=== PATIENT | female | born 1955 | race Caucasian/White ===

== ENCOUNTER 2022-12-08 06:14 | Inpatient (IN) | payer MEDICARE ==
[2022-12-08] MEDS ORDERED: CEFAZOLIN 2 GM VIAL ONE (08:19)
[2022-12-08] MEDS ORDERED: Sodium Chloride 0.9% 0 ML ONE (08:19)
[2022-12-08 08:44] LABS: SARS-CoV-2 NAA Rapid Test Not Detected (NotDetected)
[2022-12-08] MEDS ORDERED: Levofloxacin 500 mg/D5W 100 ml Premix Bag ONE (10:07)
[2022-12-08] MEDS ORDERED: Clindamycin/D5W 900 mg/50 ml Premix Bag ONE (10:07)
[2022-12-08] MEDS ORDERED: Dexamethasone 20 MG/5 ML VIAL ONE (10:21)
[2022-12-08] MEDS ORDERED: Lidocaine 1% PF 5 ML VIAL ONE (10:21)
[2022-12-08] MEDS ORDERED: PROPOFOL 200 MG/20 ML VIAL ONE (10:21)
[2022-12-08] MEDS ORDERED: Ondansetron PF 4 MG/2 ML Vial ONE (10:21)
[2022-12-08] MEDS ORDERED: HYDROcodone/Acetaminophen 10/325 mg Tablet PO PRN ×2 (10:36)
[2022-12-08] MEDS ORDERED: Promethazine 25 MG TAB PO PRN (10:36)
[2022-12-08] MEDS ORDERED: Cyclobenzaprine 10 MG TAB PO PRN (10:36)
[2022-12-08] MEDS ORDERED: traMADol HCl 50 MG TAB PO PRN ×2 (10:36)
[2022-12-08] MEDS ORDERED: diphenhydrAMINE 25 MG CAP PO PRN (10:36)
[2022-12-08] MEDS ORDERED: Morphine 2 MG/ML VIAL SLOW IVP PRN (10:36)
[2022-12-08] MEDS ORDERED: Mag-Al 1200 mg/1200 mg/30 ML UDCUP PO PRN (10:36)
[2022-12-08] MEDS ORDERED: Acetaminophen 325 MG TAB PO PRN (10:36)
[2022-12-08] MEDS ORDERED: Ondansetron PF 4 MG/2 ML Vial IVP PRN (10:36)
[2022-12-08] MEDS ORDERED: Milk Of Magnesia 30 ML UDCUP PO PRN (10:36)
[2022-12-08] MEDS ORDERED: Morphine 10 MG/ML VIAL ONE (10:49)
[2022-12-08] MEDS ORDERED: SUGAMMADEX SODIUM 200 MG/2 ML VIAL ONE (11:09)
[2022-12-08] MEDS ORDERED: Fentanyl 250 MCG/5 ML VIAL ONE (11:26)
[2022-12-08] MEDS ORDERED: Promethazine HCl 25 MG/ML VIAL IM PRN (11:33)
[2022-12-08] MEDS ORDERED: Ondansetron HCl/PF 4 MG/2 ML Vial IVP PRN (11:33)
[2022-12-08] MEDS ORDERED: Promethazine HCl 25 MG/ML VIAL IVPB PRN (11:33)
[2022-12-08 16:03] VITALS: BMI 42.5
[2022-12-08] MEDS: Sodium Chloride 0.9% 1,000 ML IV SCH ×2 (16:08→23:30)
[2022-12-08] MEDS: Carvedilol 25 MG TAB PO SCH (17:48)
[2022-12-08] MEDS: Clindamycin/D5W 900 MG in Premix Bag 1 BAG IVPB SCH (17:48)
[2022-12-08] MEDS ORDERED: oxyCODONE/Acetaminophen 5 mg/325 mg Tablet PO PRN (20:19)
[2022-12-08] MEDS ORDERED: rOPINIRole HCl 2 MG TAB PO SCH (21:00)
[2022-12-08] MEDS: oxyCODONE/Acetaminophen 5 mg/325 mg Tablet PO PRN (21:26)
[2022-12-09] MEDS: Clindamycin/D5W 900 MG in Premix Bag 1 BAG IVPB SCH (02:49)
[2022-12-09] MEDS: oxyCODONE/Acetaminophen 5 mg/325 mg Tablet PO PRN ×2 (03:32→13:29)
[2022-12-09 08:17] VITALS: BP 138/76; TEMP 98.8
[2022-12-09] MEDS ORDERED: Venlafaxine HCl XR 75 MG CAP PO SCH (09:00)
[2022-12-09] MEDS: Carvedilol 25 MG TAB PO SCH (09:11)
[2022-12-09] MEDS: Sodium Chloride 0.9% 1,000 ML IV SCH (13:32)
== END 2022-12-09 14:40 | disposition home or self-care (01) | DRG 472 ==
LOC: SURG A 07:26 → EDSTATUS 13:49 → T4-B 15:49
PROVIDERS: ADMIT Neurological Surgery; ATTEND Neurological Surgery
PROC: 0RG20A0 Fusion of 2 or more Cervical Vertebral Joints with Interbody Fusion Device, Anterior Approach, Anterior Column, Open Approach (ICD-10-PCS; principal; 2022-12-08)
PROC: 0RB30ZZ Excision of Cervical Vertebral Disc, Open Approach (ICD-10-PCS; 2022-12-08)
DX: M50.31 Other cervical disc degeneration, high cervical region (principal); M47.12 Other spondylosis with myelopathy, cervical region; Z68.41 Body mass index [BMI] 40.0-44.9, adult; Z20.822 Contact with and (suspected) exposure to COVID-19; M25.78 Osteophyte, vertebrae; E78.5 Hyperlipidemia, unspecified; G47.33 Obstructive sleep apnea (adult) (pediatric); E66.01 Morbid (severe) obesity due to excess calories; I10 Essential (primary) hypertension; Z88.0 Allergy status to penicillin; Z79.899 Other long term (current) drug therapy
CPT/HCPCS: 93005; 93010; C1713; J1100; J1956; J2270; J2405; J2704; J3010; J3490; U0002

== ENCOUNTER 2022-12-24 12:49 | Outpatient (CLI) | payer MEDICARE | END 2022-12-24 12:50 | disposition home or self-care (01) | LOC: TBSIIMAG 12:49 | PROVIDERS: ATTEND Neurological Surgery | DX: M47.12 Other spondylosis with myelopathy, cervical region (principal); Z98.1 Arthrodesis status | CPT/HCPCS: 72040 ==

== ENCOUNTER 2024-04-18 06:03 | Inpatient (IN) | payer MEDICARE ==
[2024-04-14 15:39] VITALS: BMI 41.1
[2024-04-18] MEDS ORDERED: Vancomycin 1 GM VIAL ONE (06:31)
[2024-04-18] MEDS ORDERED: LevoFLOXacin D5W 500 mg (100 mL) BAG ONE (06:53)
[2024-04-18] MEDS ORDERED: Clindamycin/D5W 900 mg/50 ml Premix Bag ONE (06:53)
[2024-04-18 06:55] LABS: #Basophils 0.04 10x3/uL (0.0-0.2); %Basophils 0.5 % (0.0-1.0); %Eosinophils 5.3 % (0.0-10.0); %Lymphocytes 28.3 % (21.0-51.0); %Monocytes 9.6 % (0.0-10.0); %Neutrophils 55.8 % (42.0-75.0); Hematocrit 35.1 % (36.0-47.0); Mean Corpuscular HGB CONC 34.2 g/dL (32.0-36.0); Mean Corpuscular Hemoglobin 30.9 pg (27.0-31.0); Mean Corpuscular Volume 90.5 fL (78.0-98.0); Mean Platelet Volume 8.7 fL (7.4-10.4); Platelet Count 169 10x3/uL (130-400); RBC Distribution Width 13.9 % (11.5-14.5); Red Blood Cell (RBC) Count 3.88 mill/uL (4.20-5.40)
[2024-04-18] MEDS ORDERED: Milk Of Magnesia 30 ML UDCUP PO PRN (07:08)
[2024-04-18] MEDS ORDERED: Mag-Al 1200 mg/1200 mg/30 ML UDCUP PO PRN (07:08)
[2024-04-18] MEDS ORDERED: Acetaminophen 325 MG TAB PO PRN (07:08)
[2024-04-18] MEDS ORDERED: Ondansetron PF 4 MG/2 ML Vial IVP PRN (07:08)
[2024-04-18] MEDS ORDERED: diphenhydrAMINE 50 MG/ML VIAL IVP PRN (07:08)
[2024-04-18] MEDS ORDERED: Promethazine 25 MG TAB PO PRN (07:08)
[2024-04-18] MEDS ORDERED: oxyCODONE/Acetaminophen 5 mg/325 mg Tablet PO PRN (07:11)
[2024-04-18] MEDS ORDERED: Midazolam HCl 2 mg/2 ml Vial ONE (07:16)
[2024-04-18] MEDS ORDERED: SUCCINYLCHOLINE/SOD CL,ISO/PF 200 MG/10 ML SYRINGE FS ONE (07:16)
[2024-04-18] MEDS ORDERED: fentaNYL PF 100 MCG/2 ML SYRINGE ONE (07:16)
[2024-04-18] MEDS ORDERED: PROPOFOL 20 ML ONE (07:16)
[2024-04-18] MEDS ORDERED: Lidocaine 1% PF 5 ML VIAL ONE (07:17)
[2024-04-18] MEDS ORDERED: Sevoflurane 250 ML INH ANEST BOTTLE ONE (07:24)
[2024-04-18 07:28] LABS: Anion Gap 17 mmol/L (10-20); BUN (Urea Nitrogen) 19 mg/dL (9.8-20.1); Calc. Creatinine Clearance 112 mL/min (70-130); Calcium 10.1 mg/dL (7.8-10.44); Carbon Dioxide 23 mmol/L (23-31); Chloride 105 mmol/L (98-107); Estimated GFR 71; Glucose 124 mg/dL (80-115); Potassium 4.2 mmol/L (3.5-5.1); Sodium 141 mmol/L (136-145)
[2024-04-18] MEDS ORDERED: Ketamine In 0.9 % NaCl 50 MG/5 ML SYRINGE ONE (08:03)
[2024-04-18] MEDS ORDERED: Dexamethasone 20 MG/5 ML VIAL ONE (08:36)
[2024-04-18] MEDS ORDERED: Ondansetron PF 4 MG/2 ML Vial ONE (08:36)
[2024-04-18] MEDS ORDERED: PHENYLEPHRINE-NS 100 MCG/ML 10 ML SYRINGE ONE (08:39)
[2024-04-18] MEDS ORDERED: Ketorolac Tromethamine 30 MG (1 mL) VIAL ONE (08:39)
[2024-04-18] MEDS ORDERED: Glycopyrrolate 0.2 MG/ML 5 ML SYRINGE ONE (08:50)
[2024-04-18] MEDS ORDERED: NEOSTIGMINE 3 MG/3 ML SYR 3 MG/3 ML SYRINGE ONE (08:50)
[2024-04-18] MEDS ORDERED: fentaNYL 50 mcg/mL 1 mL Vial ONE (09:46)
[2024-04-18] MEDS: Morphine 2 MG/ML VIAL SLOW IVP PRN (12:09)
[2024-04-18] MEDS: Sodium Chloride 0.9% 1,000 ML IV SCH (12:10)
[2024-04-18] MEDS: oxyCODONE/Acetaminophen 5 mg/325 mg Tablet PO PRN (15:32)
[2024-04-18] MEDS: Clindamycin/D5W 900 MG in Premix 1 BAG IVPB SCH (15:34)
[2024-04-18] MEDS ORDERED: Albuterol 2.5 MG (3 mL) NEB NEB PRN (17:58)
[2024-04-18] MEDS: tiZANidine HCl 4 MG TAB PO PRN (18:33)
[2024-04-18] MEDS: Calcium Carbonate 600 MG TAB PO SCH (20:18)
[2024-04-18] MEDS: rOPINIRole HCl 2 MG TAB PO SCH (20:19)
[2024-04-18] MEDS: Docusate 100 MG CAP PO SCH (20:19)
[2024-04-18] MEDS: Rosuvastatin 20 MG TAB PO SCH (20:19)
[2024-04-18] MEDS: Carvedilol 25 MG TAB PO SCH (20:19)
[2024-04-18] MEDS: Acyclovir 400 mg Tablet PO SCH (20:19)
[2024-04-18] MEDS: Azelastine 137 MCG/NASAL Spray 30 ML NS SCH (20:20)
[2024-04-19] MEDS: Loratadine 10 MG TAB PO SCH (08:12)
[2024-04-19] MEDS: Pantoprazole DR 40 MG TAB PO SCH (08:12)
[2024-04-19] MEDS: Venlafaxine HCl XR 75 MG CAP PO SCH (08:13)
[2024-04-19] MEDS: Hydrochlorothiazide 25 MG TAB PO SCH (08:13)
[2024-04-19] MEDS: Losartan 25 MG TAB PO SCH (08:14)
[2024-04-19] MEDS: traMADol HCl 50 MG TAB PO PRN (08:21)
[2024-04-19] MEDS ORDERED: Non-Formulary Item 1 EACH (Telmisartan/Hydrochlorothiazid [Micardis Hct] 80 MG/12.5 MG Ta PO SCH (09:00)
[2024-04-19 10:54] VITALS: BP 151/64; TEMP 98.3
== END 2024-04-19 11:20 | disposition home or self-care (01) | DRG 460 ==
LOC: SURG A 06:03 → SURG B 11:18 → EDSTATUS 14:20
PROVIDERS: ADMIT Neurological Surgery; ATTEND Neurological Surgery
PROC: 0SG1071 Fusion of 2 or more Lumbar Vertebral Joints with Autologous Tissue Substitute, Posterior Approach, Posterior Column, Open Approach (ICD-10-PCS; principal; 2024-04-18)
PROC: 01NB0ZZ Release Lumbar Nerve, Open Approach (ICD-10-PCS; 2024-04-18)
PROC: 0SP004Z Removal of Internal Fixation Device from Lumbar Vertebral Joint, Open Approach (ICD-10-PCS; 2024-04-18)
DX: M48.062 Spinal stenosis, lumbar region with neurogenic claudication (principal); Z68.41 Body mass index [BMI] 40.0-44.9, adult; M43.16 Spondylolisthesis, lumbar region; I10 Essential (primary) hypertension; E78.5 Hyperlipidemia, unspecified; J45.909 Unspecified asthma, uncomplicated; E66.01 Morbid (severe) obesity due to excess calories; K21.9 Gastro-esophageal reflux disease without esophagitis; G47.33 Obstructive sleep apnea (adult) (pediatric); H54.7 Unspecified visual loss; Z79.891 Long term (current) use of opiate analgesic; Z86.16 Personal history of COVID-19; Z88.0 Allergy status to penicillin; Z79.899 Other long term (current) drug therapy
CPT/HCPCS: 80048; 85025; 93005; 93010; C1713; C1889; J1100; J1885; J1956; J2250; J2272; J2405; J2704; J3010; J3370; J3490; J7050